=== PATIENT | female | born 1950 | race Caucasian/White ===

== ENCOUNTER 2016-09-28 06:30 | Observation (INO) | payer OTHER ==
[~2016-09-28] VITALS: Ht 167.6 cm; Wt 103.0 kg
--- NOTE | ~2016-09-28 | P ---
[facility] [place] [address] PROCEDURE REPORT Name: OLE CORTES Room #: 209-P [facility] Bhumi MOllie#: [id number] Admission: 09/28/16 Attend Phys: Phill Urena MD Discharge: 09/29/16 Date of : 50 Report #: [id number] THIS REPORT FOR: //name// CC: Amrit Urena PROCEDURE: Pacemaker implantation. PREOPERATIVE DIAGNOSIS: Sick sinus syndrome. POSTOPERATIVE DIAGNOSIS: Sick sinus syndrome. HISTORY: The patient is a 66-year-old with history of paroxysmal AFib, who has sick sinus syndrome and symptomatic bradycardia, here for pacemaker implantation. ANESTHESIA: The patient underwent MAC anesthesia with no anesthesia related complications. DESCRIPTION OF PROCEDURE: The patient underwent informed consent. We discussed the details of the procedure including the risks, which include but not limited to bleeding, infection, vascular damage, cardiac perforation and pneumothorax. She understood these risks and is willing to proceed. As such, she is brought to the EP laboratory in a fasting and state and prepped and draped in a sterile fashion. A venogram was performed showing patency of the left axillary vein. Next, 20 mL of lidocaine was injected below the level of left clavicle. Incision was made, pocket was created over the prepectoral fascia and then access was attempted. Access was somewhat challenging. A second venogram was performed due to difficult access. Eventually, I was able to enter the left axillary vein using the extrathoracic approach with sheaths positioned using the modified Seldinger technique. The RV lead was positioned in the right ventricular apex, but had small R waves, therefore was repositioned with better R waves. Next, the atrial lead was positioned and again this had small P waves and therefore, I did reposition it at once and the P waves were improved. Pacing and sensing thresholds were within normal limits. The leads were sutured to the prepectoral fascia and then the device was connected to leads. The pocket was closed in 3 layers using 2-0 for the deep layer, 3-0 for the middle layer, 4-0 for the subcuticular layer. Surgical glue was placed to the outer skin layer. The patient awoke neurologically and hemodynamically intact with no complications and no significant bleeding. The implanted pacemaker was a [employer] model # [id number], serial #[id number]. The atrial lead was a [employer] model #2088TC, 52 cm, serial #[id number] with a P-wave of 1.5 millivolts, pacing impedance of 400 ohms and the pacing threshold 1 volt at 0.4 milliseconds. The RV lead, [employer] model #2088TC, 58 cm, serial #[id number]. This lead demonstrated a P-wave of 3.7 millivolts, pacing impedance of 630 ohms and pacing threshold 0.75 volts at 0.4 milliseconds. The device was programmed to the DDDR 60-130 mode. [facility] [address] [place] [address] PROCEDURE REPORT Name: OLE CORTES Room #: 209-P GAVIOTA Santana#: [id number] Admission: 09/28/16 Attend Phys: Phill Urena MD Discharge: 09/29/16 Date of : 50 Report #: [id number] CONCLUSIONS: Successful dual-chamber pacemaker implantation with satisfactory atrial and ventricular pacing and sensing thresholds. <ELECTRONICALLY SIGNED> By: Phill Urena MD 09/30/16 1129 1033 2035 Phill Urena MD /nt
[2016-09-28] MEDS ORDERED: FLECAINIDE ACET50 M1 PO (07:07)
[2016-09-28] MEDS ORDERED: CARDIZEM CD120 MG PO (07:07)
[2016-09-28] MEDS ORDERED: CELEXA20 MG PO (07:07)
[2016-09-28] MEDS ORDERED: PRAVACHOL40 MG PO (07:08)
[2016-09-28] MEDS ORDERED: LISINOPRIL20 MG PO (07:08)
[2016-09-28] MEDS ORDERED: XARELTO20 MG PO (07:08)
[2016-09-28 07:19] LABS: ABSOLUTE NEUTROPHILS 3.3 thou/uL (1.4-8.2); BASOPHILS 0.7 % (0.0-2.0); EOSINOPHILS 2.6 % (0.0-3.0); HEMATOCRIT 39.9 % (37.0-47.0); HEMOGLOBIN 12.9 gm/dL (12.0-15.0); LYMPHOCYTES 32.4 % (24.0-44.0); MCH 29.3 pg (26.0-34.0); MCHC 32.3 g/dL (28.0-37.0); MCV 90.8 fL (80.0-100.0); MONOCYTES 8.9 % (1.0-8.0); PLATELET COUNT 223 thou/uL (150-400); POLYS 55.4 % (36.0-66.0); RBC 4.39 mil/uL (4.20-5.00); RDW 14.8 % (10.5-14.5); WBC 5.9 thou/uL (4.0-11.0)
[2016-09-28 07:21] LABS: MANUAL DIFF NO
[2016-09-28 07:33] LABS: POTASSIUM 4.2 mmol/L (3.5-5.1)
[2016-09-28 07:34] LABS: APTT 25.7 Seconds (24.5-32.8); PROTIME 10.2 Seconds (9.3-11.4)
[2016-09-28 07:38] LABS: ALBUMIN 3.7 g/dL (3.4-5.0); TOTAL BILIRUBIN 0.4 mg/dL (<0.1-1.0); TOTAL PROTEIN 6.9 g/dL (6.4-8.2)
[2016-09-28 12:31] VITALS: BP 156/87
[2016-09-28 19:27] VITALS: BP 129/69
[2016-09-29] VITALS (7 sets, daily range): BP systolic 123–142; BP diastolic 75–79
== END 2016-09-29 15:10 | disposition home or self-care (01) ==
LOC: CATH 06:30 → 2N 12:06 → CATH 14:32 → 2N 09-29 15:10
PROVIDERS: Internal Medicine Cardiovascular Disease
DX: I49.5 Sick sinus syndrome (principal); I48.2 Chronic atrial fibrillation; I48.0 Paroxysmal atrial fibrillation; F32.9 Major depressive disorder, single episode, unspecified; E78.5 Hyperlipidemia, unspecified; F41.9 Anxiety disorder, unspecified; I10 Essential (primary) hypertension
CPT/HCPCS: 62110; 62900; 70005

== ENCOUNTER → 2017-06-30 | Outpatient (CLI) | payer OTHER ==
[~2017-06-30] MED LIST: CARDIZEM CD120 MG PO; CELEXA20 MG PO; FLECAINIDE ACET50 M1 PO; GUAIFENESIN-CODE5 ML PO; LISINOPRIL20 MG PO; PRAVACHOL40 MG PO; TESSALON PERLE100 MG PO; VENTOLIN HFA 1818 GM INH; XARELTO20 MG PO
--- NOTE | ~2017-06-30 | 2DMMODE ---
[facility] [place] [address] 2 D/M-MODE ECHOCARDIOGRAM Name: OLE CORTES Room #: REG CL Ollie#: [id number] Admission: 06/30/17 Attend Phys: Phill Urena Discharge: Date of : 50 Date of Service: 06/30/17 0957 Report #: [id number] THIS REPORT FOR: //name// APPROVED REPORT Study performed: 06/30/2017 08:50:56 EXAM: Comprehensive 2D, Doppler, and color-flow Echocardiogram Patient Location: Out-Patient Status: routine BSA: 2.08 HR: 60 bpm BP: 132/78 mmHg Rhythm: NSR Other Information Study Quality: Adequate Indications Short of breath, pacemaker. Hx: HTN, HLP 2D Dimensions RVDd: 34.91 mm LVEF(%): 70.92 (>50%) IVSd: 9.81 (7-11mm) LVOT Diam: 21.00 (18-24mm) LVDd: 48.26 mm PWd: 9.53 (7-11mm) Ascending Ao: 31.84 (22-36mm) LVDs: 28.80 (25-40mm) Aortic Root: 36.17 mm Nesbitt's LVEF: 70.92 % Volumes Left Atrial Volume (Systole) Single Plane 4CH: 80.75 mL Single Plane 2CH: 65.19 mL LA ESV Index: 36.00 mL/m2 Aortic Valve AoV Peak Wilbur.: 1.64 m/s AO Peak Gr.: 10.69 mmHg LVOT Max P.62 mmHg LVOT Max V: 1.47 m/s TANA Vmax: 3.11 cm2 Mitral Valve E/A Ratio: 1.4 MV Decel. Time: 205.35 ms [facility] [place] [address] 2 D/M-MODE ECHOCARDIOGRAM Name: OLE CORTES [id number] Admission: 06/30/17 Attend Phys: Phill Urena Discharge: Date of : 50 Date of Service: 06/30/17 0957 Report #: [id number] MV E Max Wilbur.: 1.03 m/s MV A Wilbur.: 0.75 m/s MV PHT: 59.55 ms IVRT: 73.82 ms Pulmonary Valve PV Peak Wilbur.: 0.93 m/s PV Peak Gr.: 3.45 mmHg Pulmonary Vein P Vein S: 0.75 m/s P Vein A: 0.28 m/s P Vein D: 0.41 m/s P Vein A Dur.: 110.7 msec P Vein S/D Ratio: 1.83 Tricuspid Valve TR Peak Wilbur.: 2.33 m/s RAP Estimate: 5.00 mmHg TR Peak Gr.: 21.73 mmHg PA Pressure: 27.00 mmHg Left Ventricle The left ventricle is normal size. There is normal LV segmental wall motion. There is normal left ventricular wall thickness. Left ventricular systolic function is normal. LVEF is 60-65%. Grade II - pseudonormal filling dynamics. Right Ventricle The right ventricle is normal size. The right ventricular systolic function is normal. Pacemaker lead is present in the right ventricle. Atria Left atrium is mildly dilated. The right atrium size is normal. Aortic Valve The aortic valve is normal in structure. Trace aortic regurgitation. There is no aortic valvular stenosis. Mitral Valve The mitral valve is normal in structure. Trace to mild mitral regurgitation. Tricuspid Valve The tricuspid valve is normal in structure. Trace tricuspid regurgitation. Estimated PAP is 25-30mmHg. Pulmonic Valve Pulmonic valve is not well visualized. Trace pulmonic [facility] [address] [place] [address] 2 D/M-MODE ECHOCARDIOGRAM Name: OLE CORTES Room #: REG CL Mxa#: [id number] Admission: 06/30/17 Attend Phys: Phill Urena Discharge: Date of : 50 Date of Service: 06/30/17 0957 Report #: [id number] regurgitation. Great Vessels The aortic root is normal in size. The ascending aorta is normal in size. IVC is normal in size and collapses >50% with inspiration. Pericardium There is no pericardial effusion. <Conclusion> The left ventricle is normal size. There is normal left ventricular wall thickness. Left ventricular systolic function is normal. The right ventricle is normal size. Pacemaker lead is present in the right ventricle. Left atrium is mildly dilated. Trace aortic regurgitation. Trace to mild mitral regurgitation. Trace tricuspid regurgitation. Estimated PAP is 25-30mmHg. <ELECTRONICALLY SIGNED> By: Roberto Correa MD 06/30/1757 6 6 Roberto Correa MD /INF
== END ==
LOC: CV 06:25
DX: I48.91 Unspecified atrial fibrillation (principal); R06.02 Shortness of breath; I10 Essential (primary) hypertension; E78.5 Hyperlipidemia, unspecified; Z95.0 Presence of cardiac pacemaker

== ENCOUNTER → 2017-07-14 | Outpatient (CLI) | payer OTHER | LOC: RAD 07:31 | DX: J98.11 Atelectasis (principal); K44.9 Diaphragmatic hernia without obstruction or gangrene ==

== ENCOUNTER → 2017-08-17 | Outpatient (CLI) | payer OTHER ==
[~2017-08-17] MED LIST changes: -GUAIFENESIN-CODE5 ML PO; -TESSALON PERLE100 MG PO; -VENTOLIN HFA 1818 GM INH
== END ==
LOC: SLEEPLAB 07-27 14:08
DX: G47.33 Obstructive sleep apnea (adult) (pediatric) (principal)

== ENCOUNTER 2017-09-09 21:44 | Emergency (ER) | payer OTHER ==
[~2017-09-09] VITALS: Ht 167.6 cm; Wt 99.8 kg
[2017-09-09] MEDS ORDERED: TESSALON PERLE100 MG PO (22:41)
[2017-09-09] MEDS ORDERED: VENTOLIN HFA 1818 GM INH (22:41)
[2017-09-09] MEDS ORDERED: GUAIFENESIN-CODE5 ML PO (22:41)
== END 2017-09-09 23:32 | disposition home or self-care (01) ==
LOC: ER 21:44
DX: J40 Bronchitis, not specified as acute or chronic (principal); R51 Headache; I48.91 Unspecified atrial fibrillation; Z90.89 Acquired absence of other organs; I10 Essential (primary) hypertension; E78.00 Pure hypercholesterolemia, unspecified

== ENCOUNTER → 2017-10-13 | Outpatient (CLI) | payer OTHER ==
[~2017-10-13] MED LIST changes: +GUAIFENESIN-CODE5 ML PO; +TESSALON PERLE100 MG PO; +VENTOLIN HFA 1818 GM INH
== END ==
LOC: SLEEPLAB 16:15
DX: G47.33 Obstructive sleep apnea (adult) (pediatric) (principal)

== ENCOUNTER → 2019-12-12 | Outpatient (CLI) | payer OTHER | LOC: SJCVCIMAG 07:40 | PROVIDERS: ATTEND Internal Medicine Cardiovascular Disease | DX: I35.8 Other nonrheumatic aortic valve disorders (principal); I48.91 Unspecified atrial fibrillation; Z95.0 Presence of cardiac pacemaker ==

== ENCOUNTER → 2021-04-19 | Outpatient (CLI) | payer OTHER ==
[~2021-04-19] MED LIST changes: +ELIQUIS5 MG PO; +FUROSEMIDE 40 M40 M1 PO; +KLOR-CON 1010 MEQ PO; +METFORMIN HCL500 M3 PO
[2021-04-19 09:31] LABS: HEMATOCRIT 44.1 % (37.0-47.0); HEMOGLOBIN 14.1 gm/dL (12.0-15.0); MCH 28.8 pg (26.0-34.0); MCHC 31.9 g/dL (28.0-37.0); MCV 90.2 fL (80.0-100.0); RBC 4.89 mil/uL (4.20-5.00); RDW 15.4 % (10.5-14.5); WBC 7.1 thou/uL (4.0-11.0)
[2021-04-19 09:57] LABS: ALBUMIN 3.5 g/dL (3.4-5.0); POTASSIUM 4.6 mmol/L (3.5-5.1); TOTAL BILIRUBIN 0.3 mg/dL (0.2-1.0); TOTAL PROTEIN 6.9 g/dL (6.4-8.2)
== END ==
LOC: CAT
PROVIDERS: ATTEND Internal Medicine Cardiovascular Disease
DX: I25.10 Atherosclerotic heart disease of native coronary artery without angina pectoris (principal); I48.91 Unspecified atrial fibrillation; Z95.0 Presence of cardiac pacemaker

== ENCOUNTER 2021-04-21 06:20 | Observation (INO) | payer OTHER ==
[2021-04-21] VITALS (14 sets, daily range): BP systolic 129–161; BP diastolic 63–95
[~2021-04-21] VITALS: Ht 165.1 cm; Wt 110.8 kg
[~2021-04-21 06:20] MED LIST changes: -ELIQUIS5 MG PO; -FUROSEMIDE 40 M40 M1 PO; -KLOR-CON 1010 MEQ PO; -METFORMIN HCL500 M3 PO
[2021-04-21] MEDS ORDERED: METFORMIN HCL500 M3 PO (07:39)
[2021-04-21] MEDS ORDERED: FUROSEMIDE 40 M40 M1 PO (07:40)
[2021-04-21] MEDS ORDERED: KLOR-CON 1010 MEQ PO (07:41)
[2021-04-21] MEDS ORDERED: ELIQUIS5 MG PO (07:41)
[2021-04-21 07:44] LABS: ABSOLUTE NEUTROPHILS 4.3 thou/uL (1.4-8.2); EOSINOPHILS 1.7 % (0.0-3.0); HEMATOCRIT 42.6 % (37.0-47.0); HEMOGLOBIN 13.8 gm/dL (12.0-15.0); LYMPHOCYTES 28.1 % (24.0-44.0); MCH 28.6 pg (26.0-34.0); MCHC 32.3 g/dL (28.0-37.0); MCV 88.5 fL (80.0-100.0); MONOCYTES 9.5 % (1.0-8.0); PLATELET COUNT 258 thou/uL (150-400); POLYS 59.7 % (36.0-66.0); RBC 4.82 mil/uL (4.20-5.00); WBC 7.2 thou/uL (4.0-11.0)
[2021-04-21 07:53] LABS: APTT 25.5 Seconds (24.5-32.8); CALCIUM 9.1 mg/dL (8.5-10.1); CREATININE 1.1 mg/dL (0.6-1.0); INR 0.94; POTASSIUM 4.4 mmol/L (3.5-5.1); PROTIME 10.3 Seconds (10.5-12.1)
[2021-04-21 07:58] LABS: ALBUMIN 3.6 g/dL (3.4-5.0); TOTAL BILIRUBIN 0.3 mg/dL (0.2-1.0)
--- NOTE | 2021-04-21 13:23 | NUR ---
Received pt to room 213 from [facility] post afib ablation around 1220. Pt is A&O x4, on 2L NC. Pt c/o rt grn pain from site 12/01. PRN medication given. Stop cock removed per [facility] instructions at 1300. 2 addt. hours of bedrest. New dressing C/D/I. Bedrest explained to patient. Admission assessment & forms signed, posted in chart. Pt oriented to room. Fall education performed.
--- NOTE | 2021-04-22 04:01 | NUR ---
RECEIVED PATIENT AT 1900H.ASSESSMENT DONE CHARTED.RIGHT GROIN SITE IS COVERED WITH DRESSING, C/D/I.HAD COMPLAINT OF PAIN ON THE RIGHT GROIN SITE, PRN PAIN MEDICATION GIVEN.ALL NEEDS ATTENDED.TO CONTINOUSLY MONITOR.
[2021-04-22 04:19] VITALS: BP 139/79
[2021-04-22 07:30] VITALS: BP 150/79
[2021-04-22 11:11] VITALS: BP 150/79
--- NOTE | 2021-04-22 11:31 | NUR ---
Nutrition: Seen d/t high risk screen. 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 Noted pt in for scheduled atrial fibrillation ablation surgery, cardiac cath performed. Held overnight for observation. Intake 100% at lunch yesterday and 75% at dinner. BMI 40.6, extreme class III obesity. Weight loss <5% x last 3 months, non-significant. Further, gradual weight loss would be favorable r/t BMI status. Pt planned d/c today. Low nutrition risk with opportunities for heart healthy diet education as needed.
[2021-04-22 12:00] VITALS: BP 136/72
[2021-04-22 12:05] LABS: ABSOLUTE NEUTROPHILS 9.2 thou/uL (1.4-8.2); BASOPHILS 0.1 % (0.0-2.0); HEMOGLOBIN 11.9 gm/dL (12.0-15.0); LYMPHOCYTES 13.6 % (24.0-44.0); MCH 28.8 pg (26.0-34.0); MCHC 32.1 g/dL (28.0-37.0); MCV 89.7 fL (80.0-100.0); PLATELET COUNT 233 thou/uL (150-400); POLYS 78.3 % (36.0-66.0); RBC 4.13 mil/uL (4.20-5.00); RDW 15.4 % (10.5-14.5); WBC 11.7 thou/uL (4.0-11.0)
[2021-04-22 12:20] LABS: CALCIUM 8.9 mg/dL (8.5-10.1); CREATININE 1.1 mg/dL (0.6-1.0); POTASSIUM 4.4 mmol/L (3.5-5.1)
--- NOTE | 2021-04-22 12:36 | 2DMMODE ---
[facility] [place] [address] 2 D/M-MODE ECHOCARDIOGRAM Name: OLE CORTES Room #: 213-P ADM Bhumi M.R.#: [id number] Admission: 04/21/21 Attend Phys: Phill Urena MD Discharge: Date of : 50 Report #: [id number] THIS REPORT FOR: cc: Amrit Rouse MD, Bradley MD Lammoglia, Francisco J. MD ~ APPROVED REPORT Study performed: 04/22/2021 11:20:18 EXAM: Comprehensive 2D, Doppler, and color-flow Echocardiogram Patient Location: In-Patient Room #: 213 Status: routine BSA: 2.15 HR: 62 bpm BP: 150/79 mmHg Rhythm: NSR Other Information Study Quality: Adequate Indications Chest Pain Post ablation Tricuspid Valve TR Peak Wilbur.: 2.34 m/s RAP Estimate: 7.00 mmHg TR Peak Gr.: 21.90 mmHg RVSP: 29.00 mmHg Left Ventricle The left ventricle is normal size. There is normal left ventricular wall thickness. The left ventricular systolic function is normal. The left ventricular ejection fraction is within the normal range. LVEF is 55-60%. This study is not technically sufficient to allow evaluation of the LV diastolic function. Right Ventricle The right ventricle is normal size. Atria Left atrium is mildly dilated. Right atrium is mildly dilated. [facility] [place] [place] [address] 2 D/M-MODE ECHOCARDIOGRAM Name: OLE CORTES Room #: 213-P ADM IN M.R.#: [id number] Admission: 04/21/21 Attend Phys: Phill Mullennnpeyton Discharge: Date of : 50 Report #: [id number] Aortic Valve Aortic valve is trileaflet. Mitral Valve The mitral valve is normal in structure. Moderate mitral regurgitation. Tricuspid Valve Mild tricuspid regurgitation. PAP 29 mmHg Great Vessels IVC is normal in size and collapses >50% with inspiration. Pericardium Prominent anterior epicardial fat pad is present. No pericardial effusion. There is no pleural effusion. <Conclusion> The left ventricle is normal size. LVEF is 55-60%. The right ventricle is normal size. Left atrium is mildly dilated. Right atrium is mildly dilated. Aortic valve is trileaflet. The mitral valve is normal in structure. Moderate mitral regurgitation. Mild tricuspid regurgitation. PAP 29 mmHg Prominent anterior epicardial fat pad is present. No pericardial effusion. <ELECTRONICALLY SIGNED> By: Yogi Lynch MD 04/22/21 1236 1236 123 Yogi Lynch MD /INF
[2021-04-22 17:00] VITALS: BP 160/84
[2021-04-22 17:03] VITALS: BP 150/79
--- NOTE | 2021-04-22 18:26 | NUR ---
PATIENT EXPRESSED CONCERN ABOUT INTERMITTENT CHEST PAIN NEAR RIB CAGE. ABLE TO DECREASE PAIN THROUGH MEDICATION. AFTER LUNCH, PATIENT EXPERIENCED ABDOMINAL PAIN HIGH UPON UPPER QUADRANT. ABLE TO RELIEVE PAIN THROUGH WARM BLANKET AND EXPLAINING POSSIBLE GAS AND NEED TO RELEASE BOWEL MOVEMENT. PATIENT EXPRESSED CONCERN ABOUT April RETURNING TO EMPLOYMENT. THIS NURSE EXPLAINED TO CONTACT DOCTOR ON MONDAY TO REQUEST ASSISTANCE IN THIS MATTER. PATIENT DELIGHTED OF CARE DURING STAY.
--- NOTE | 2021-04-22 18:46 | NUR ---
PATIENT DISCHARGED THIS AFTERNOON. PATIENT EDUCATED ON DISCHARGE PROCEDURES AND MEDICATION RECONCILIATION TO HOME. THIS NURSE PULLED IV AND TOOK OFF CARDIAC TELE-MONITOR. THIS NURSE AMBULATED PATIENT WITH WHEELCHAIR TO EMERGENCY ENTRANCE TO DAUGHTER WHOM WILL TAKE PATIENT TO HOME.
--- NOTE | 2021-04-23 11:11 | EKG ---
[address] [place] [address] ELECTROCARDIOGRAM REPORT Name: OLE CORTES Room #: 213-[facility]..#: [id number] Admission: 04/21/21 Attend Phys: Phill Urena MD Discharge: 04/22/21 Date of : 50 Report #: [id number] [facility] Test Date: 2021-04-22 Test Time: 09:07:41 Pat Name: OLE CORTES Department: Room: 213 Gender: F [employer] Agent: BERNIE : 1950 Requested By: Phill Urena Order Number: [id number] MD: Bayron Reza Measurements Intervals [place] Rate: 60 P: -89 ID: [id number] QRS: 70 QRSD: 119 T: -17 QT: 456 QTc: 456 Interpretive Statements Sinus rhythm Nonspecific T wave abnormality No previous ECG available for comparison Electronically Signed On 04-23-2021 11:11:49 DISABILITY SPECIALIST by Bayron Reza [email or web address] <ELECTRONICALLY SIGNED> By: Bayron Reza MD, [facility] 04/23/21 1111 0907 6 Bayron Reza MD, FAC /EPI
--- NOTE | 2021-04-26 08:28 | P ---
[facility] [place] [address] PROCEDURE REPORT Name: OLE CORTES Room #: 213-P [facility] Bhumi M.R.#: [id number] Admission: 04/21/21 Attend Phys: Phill Urena MD Discharge: 04/22/21 Date of : 50 Report #: [id number] THIS REPORT FOR: cc: Amrit Rouse MD, Bradley MD Couchonnal, Luis F. MD ~ AFIB ABLATION PREOPERATIVE DIAGNOSIS: Atrial fibrillation. POSTOPERATIVE DIAGNOSES: Atrial fibrillation and atypical atrial flutter. HISTORY: The patient is a 70-year-old female with history of recurrent AFib and sick sinus syndrome, status post [employer] pacemaker implantation, here for AFib ablation. PROCEDURES PERFORMED: 1. Atrial fibrillation ablation, CPT code 90940 2. 3D mapping, CPT code 72641. 3. Intracardiac echo, CPT code 05669. 4. Focal ablation, CPT code 64637. 5. Preprocedural pacemaker reprogramming, CPT code 51379. 6. Post-procedural pacemaker reprogramming, CPT code 66820. ANESTHESIA: The patient underwent general anesthesia with no anesthesia related complications. DESCRIPTION OF PROCEDURE: The patient underwent informed consent. She was then brought to the EP laboratory in fasting and sedated state, prepped and draped in standard fashion. Preablation, I reprogrammed her pacemaker to the DDD 60 mode. Next, I obtained access to the right femoral vein x 3, placing 8, 9 and 7-Yoruba short sheath. At baseline, the patient appeared to be in atrial flutter. Under fluoroscopy, I placed a decapolar catheter into the coronary sinus and an ICE catheter in the right atrium. At baseline, the patient was in an atypical atrial flutter with an atrial cycle length of 270 milliseconds and with earliest atrial activation on CS 1-2 suggestive of left sided flutter. The patient was systemically heparinized and a transseptal was performed using an SL1 sheath and a [place] needle, which was straightforward. I then exchanged for the cryosheath and placed the Lasso catheter in the left atrium. Using the Lasso catheter, I created a detailed 3D geometry of the left atrium. I attempted to map the left atrial flutter. The CS kept falling out, so I decided to go ahead and start by isolating the pulmonary veins. The left superior pulmonary vein underwent three 4-minute freezes isolating during the second freeze. The left inferior pulmonary vein underwent a 4-minute freeze isolating at 30 seconds. The right superior pulmonary vein underwent a 4-minute freeze [address] [address] PROCEDURE REPORT Name: OLE CORTES Room #: 213-P [facility] Bhumi M.RMarlen#: [id number] Admission: 04/21/21 Attend Phys: Phill Urena MD Discharge: 04/22/21 Date of : 50 Report #: [id number] isolating at 30 seconds and the right inferior pulmonary vein underwent a 200-second freeze followed by a 3-minute freeze and isolated during the second freeze at 45 milliseconds. I then repositioned the decapolar catheter back in the coronary sinus to map this left atrial flutter and now it had a more vertical activation with a tachycardia cycle length of 330 milliseconds. As this appeared to be left sided in nature, I decided to go ahead and perform posterior wall isolation. I performed a total of 5 freezes along the posterior wall, each of 3 minutes duration. During the third freeze, which was along the mid posterior wall, there was a significant slowing and the flutter cycle length down to 420 milliseconds and then there was acute termination. I continued my posterior wall isolation with 2 additional freezes. During these freezes, esophageal temperatures were within normal limits. Post-ablation, a repeat voltage map was created and all four pulmonary veins were isolated and the posterior left atrium was also isolated. There were no other arrhythmias noted and therefore, the procedure was concluded. There was no evidence of pericardial effusion on intracardiac ultrasound and therefore the procedure was concluded. The patient's device was interrogated and found to be functioning normally and reset back to its nominal settings. The procedure was without complications. CONCLUSION: 1. Successful AFib ablation with isolation of the pulmonary veins. 2. Successful posterior wall isolation with acute termination of a left sided atrial flutter. <ELECTRONICALLY SIGNED> By: Phill Urena MD 04/26/21 0828 1347 2333 Phill Urena MD /nt
== END 2021-04-22 18:00 | disposition home or self-care (01) ==
LOC: CATH 06:20 → 2N 13:12 → CATH 13:27 → 2N 18:12
PROVIDERS: ADMIT Internal Medicine Cardiovascular Disease; ATTEND Internal Medicine Cardiovascular Disease
DX: I48.0 Paroxysmal atrial fibrillation (principal); Z20.822 Contact with and (suspected) exposure to COVID-19; I48.92 Unspecified atrial flutter; G47.33 Obstructive sleep apnea (adult) (pediatric); I11.0 Hypertensive heart disease with heart failure; I50.30 Unspecified diastolic (congestive) heart failure; R07.89 Other chest pain
CPT/HCPCS: 62110; 62900; 65020; 65040; 70005